=== PATIENT | female | born 1985 | race Caucasian/White ===

== ENCOUNTER 2018-08-31 14:46 | Emergency (ER) | payer BC ==
[~2018-08-31] VITALS: Wt 65.8 kg
--- NOTE | 2018-08-31 15:50 | ERD ---
ER Documentation Chief Complaint Chief Complaint 8 wks preg: dark red spotting since last PM. last exam on Sun 32-year-old female, previously healthy, G1, P0 at approximately 9 weeks by LMP 06/28/2018, presents to the emergency department, complaining of 1 day with mild vaginal spotting after having an ultrasound done at her clinic. The patient denies pelvic pain, no abdominal pain, no urinary symptoms, no fever or chills. ROS All systems reviewed and are negative except as per history of present illness. Allergies Allergies: Coded Allergies: No Known Allergy (Unverified , 08/31/18) PMhx/Soc Medical and Surgical Hx: pt denies Medical Hx, pt denies Surgical Hx Hx Alcohol Use: No Hx Substance Use: No Hx Tobacco Use: No Smoking Status: Never smoker FmHx Family History: No diabetes, No coronary disease Physical Exam Vitals Vital Signs Date Temp Pulse Resp B/P (MAP) Pulse Ox O2 O2 Flow FiO2 Time Delivery Rate 08/31/18 98.8 85 16 102/64 98 15:00 (77) Physical Exam Const: No acute distress Head: Atraumatic Eyes: Normal Conjunctiva ENT: Normal External Ears, Nose and Mouth. Neck: Full range of motion. No meningismus. Resp: Clear to auscultation bilaterally Cardio: Regular rate and rhythm, no murmurs Abd: Soft, non tender, non distended. Normal bowel sounds Skin: No petechiae or rashes Back: No midline or flank tenderness Ext: No cyanosis, or edema Neur: Awake and alert Psych: Normal Mood and Affect Results 24 hrs Patient: LUCY SPARKS : 1985 Age: 32 Sex: F MR #: [id number] DOS: 08/31/18 0000 Ordering MD: SALINA SIMON MD Location: [facility] Room/Bed: PROCEDURE: US OB. CLINICAL INDICATION: First trimester hemorrhage. Threatened . TECHNIQUE: Transabdominal views of the pelvis are available for review. COMPARISON: No prior studies are available for comparison. FINDINGS: The uterus is anteverted. There is a bicornuate configuration to the uterus . Noted is a single intrauterine gestation sac. Mean sac diameter measures 4.0 cm in diameter. There is a pole with a heart beat measuring 179 beats per minute. [place]-rump length measures 24 millimeters corresponding to a gestational age of 9 weeks 1 days by ultrasound criteria. There is no subchorionic hemorrhage. The right ovary measures 2.4 x 1.3 x 2.1 centimeter. The left ovary measures 3.7 x 2.5 x 2 point a centimeter. No adnexal masses seen. There is normal arterial flow to both ovaries on color-flow Doppler imaging. There is no free fluid in the pelvis. No solid pelvic mass is present. IMPRESSION: Single intrauterine gestation of approximate gestational age 9 weeks 1 days by ultrasound criteria with positive heart beat. No subchorionic hemorrhage. Bicornuate uterus. .Colby Miranda MD, MD Date Time Electronically viewed and signed by .Colby Miranda MD, on 08/31/2018 17:41 Procedures/MDM Vital signs stable, Physical exam unremarkable. Differential diagnosis include but not limited to: UTI, threatening , incomplete versus complete , ectopic , physiologic implantation bleeding, molar . Physical examination and clinical presentation most likely consistent with threatening . During the ED course the patient remained hemodynamically stable and asymptomatic. Results and clinical impression discussed with patient who agrees with management. The patient is stable to be treated outpatient and will be discharged home with close monitoring and follow-up in 2 days with her primary physician. The patient was instructed regarding the outcomes and the potential complications like severe bleeding and . If the patient presents severe bleeding or pain, she was instructed to return to the hospital immediately. Disclaimer: Inadvertent spelling and grammatical errors are likely due to EHR/dictation software use and do not reflect on the overall quality of patient care. Also, please note that the electronic time recorded on this note does not necessarily reflect the actual time of the patient encounter. Departure Diagnosis: Primary Impression: 9 weeks gestation of Additional Impression: Vaginal bleeding affecting early Condition: Stable Additional Instructions: Thank you very much for allowing us to participate in your care. Your health and safety is our top priority at [facility]. The evaluation in the emergency department has been done to rule out an acute emergency. Chronic, [id number] conditions may have not been evaluated; therefore, you need to follow up with a primary care provider in the next 48h. If symptoms persist, worsen or new symptoms develop, then patient should return to the ED immediately. Call your primary care doctor TOMORROW for an appointment during the next 2-4 days and bring all the information provided. Have prescriptions filled and follow precisely the directions on the label. If the symptoms get worse and your provider is unavailable, return to the [facility] ergency Department immediately. SALINA SIMON MD Aug 31, 2018 15:50
[2018-08-31 18:00] VITALS: BP 106/61; PULSE 79; RESP 18
== END 2018-08-31 18:00 | disposition home or self-care (01) ==
LOC: FTE 14:46
DX: O20.9 Hemorrhage in early pregnancy, unspecified (principal); Z3A.09 9 weeks gestation of pregnancy
CPT/HCPCS: 76801